=== PATIENT | male | born 1970 | race Caucasian/White ===

== ENCOUNTER 2021-01-17 20:38 | Emergency (ER) | payer SELFPAY ==
[2021-01-17 20:43] VITALS: BP 164/105; PULSE 93; RESP 18; TEMP 36.5; O2SAT 97; BMI 22.9
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
[2021-01-17] MEDS: iohexol 300 mg/mL 100 mL Btl IV (21:34)
[2021-01-17 22:01] VITALS: RESP 618; O2SAT 98
[2021-01-17] MEDS: ondansetron 2 mg/ML SDV 2 mL 4 MG IVP (22:01)
[2021-01-17] MEDS: morphine 4 mg/mL SDV 1 mL IVP (22:01)
[2021-01-17] MEDS: tetanus-dipt-pertussis 0.5 mL SDV IM (22:03)
[2021-01-17 22:09] LABS: Basophils # 0.1 10^3/uL (0.0-0.1); Basophils % 0.5 %; Eosinophils # 0.1 10^3/uL (0.0-0.8); Eosinophils % 0.3 %; Hematocrit 51.2 % (42.0-52.0); Hemoglobin 17.3 g/dL (11.7-16.6); Lymphocytes # 2.4 10^3/uL (0.8-4.8); Mean Corpuscular HGB Conc 33.8 g/dL (30.0-36.0); Mean Corpuscular Hemoglobin 32.7 pg (28.0-34.0); Mean Corpuscular Volume 96.8 fL (80-94); Mean Platelet Volume 9.7 fL (7.4-10.4); Monocytes # 1.5 10^3/uL (0.2-0.9); Monocytes % 6.3 %; Neutrophils # 19.61 10^3/uL (1.8-7.7); Neutrophils % 82.3 %; Nucleated Red Blood Cells % 0 %; Platelet Count 255 10^3/cmm (130-400); Red Blood Count 5.29 10^6/uL (4.1-5.3); Red Cell Distribution Width 14.3 % (12.1-15.1); White Blood Count 23.8 10^3/uL (4.0-10.0)
[2021-01-17 22:28] LABS: Alanine Aminotransferase 44 U/L (0-41); Albumin Level 4.5 g/dL (3.5-5.2); Alkaline Phosphatase 82 IU/L (40-130); Aspartate Amino Transferase 62 U/L (0-40); Blood Urea Nitrogen 18 mg/dL (6-20); Calcium 8.6 mg/dL (8.5-10.5); Carbon Dioxide 24 mmol/L (22-29); Chloride 96 mmol/L (98-107); Globulin 2.6 g/dL (1.3-4.6); Glucose 98 mg/dL (65-115); Osmolality Calculated 286 mOsm/kg (285-295); Sodium 137 mmol/L (136-145); Total Bilirubin 0.5 mg/dL (0.15-1.2); Total Protein 7.1 g/dL (6.6-8.7)
[2021-01-17 22:29] LABS: Anion Gap 20.7 (5-19); Potassium 3.7 mmol/L (3.5-5.1)
[2021-01-17 22:30] LABS: Creatine Phosphokinase 845 U/L (39-308)
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
[2021-01-17 23:01] VITALS: BP 145/86; PULSE 80; RESP 18; TEMP 36.6; O2SAT 98
--- NOTE | 2021-01-18 08:14 | DCPLANNER ---
manager financial had message to schedule a follow up appointment for patient with ortho for a clavicle fracture. manager financial called the ortho clinic, spoke with Lou, gave clinic patients information. manager financial was told that patients information would be printed and reviewed. Clinic will call patient with appointment information.
--- NOTE | 2021-01-21 07:27 | DCPLANNER ---
Patient has a follow up appointment scheduled for Friday, January 22, 2021 at 10:[address] Carter. Clinic will call patient with appointment information.
--- NOTE | 2021-02-28 07:18 | DCPLANNER ---
Patient had a follow up appointment scheduled for 01.22.21 with ortho - patient did not attend appointment.
== END 2021-01-17 23:52 | disposition home or self-care (01) ==
PROVIDERS: Emergency Provider Family Medicine
DX: S42.022A Displaced fracture of shaft of left clavicle, initial encounter for closed fracture (principal); T79.6XXA Traumatic ischemia of muscle, initial encounter; R91.1 Solitary pulmonary nodule; V86.59XA Driver of other special all-terrain or other off-road motor vehicle injured in nontraffic accident, initial encounter; Z23 Encounter for immunization
CPT/HCPCS: 70450; 71260; 72125; 73030; 74177; 80053; 82550; 85025; 90471; 90715; 96374; 96375; 99283; J2270; J2405; Q9967